=== PATIENT | male | born 1960 | race Caucasian/White ===

== ENCOUNTER 2020-07-30 09:55 | Emergency (ER) | payer BC ==
[~2020-07-30] VITALS: Ht 193 cm; Wt 149.7 kg
--- NOTE | 2020-07-30 09:55 | NUR ---
Patient to ER bed 5 to gown for evaluation. Side rails up.
[2020-07-30 09:58] VITALS: BP_SYST 136
--- NOTE | 2020-07-30 10:00 | NUR ---
Pt came to ER for fever (currently 98.4), diarrhea at home, nausea for the last few days. 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
--- NOTE | 2020-07-30 10:15 | NUR ---
ER at bedside examining patient.
[2020-07-30] MEDS ORDERED: NACL 0.9% 1,000 ML IV ONE (10:30)
[2020-07-30 10:55] LABS: BASOPHILS # (AUTO) 0.1 K/uL (0.0-0.2); BASOPHILS % (AUTO) 0.7 % (0.0-2.0); EOSINOPHILS # (AUTO) 0.1 K/uL (0.0-0.4); EOSINOPHILS % (AUTO) 0.5 % (0.0-4.0); HEMATOCRIT 49.6 % (36-54); LYMPHOCYTES # (AUTO) 0.7 K/uL (1.0-5.5); LYMPHOCYTES % (AUTO) 5.5 % (20.5-51.5); MEAN CORPUSCULAR HEMOGLOBIN 30 pg (27-31); MEAN CORPUSCULAR HGB CONC 34 % (32-36); MEAN CORPUSCULAR VOLUME 88 fL (79.0-98.0); MONOCYTES # (AUTO) 0.6 K/uL (0.0-1.0); MONOCYTES % (AUTO) 4.6 % (1.7-9.3); NEUTROPHILS # (AUTO) 11.6 K/uL (1.8-7.7); NEUTROPHILS % (AUTO) 88.7 % (40.0-70.0); PLATELET COUNT (AUTO) 155 K/uL (130-430); RED BLOOD CELL COUNT(AUTO) 5.64 MIL/uL (4.2-6.2); RED CELL DISTRIBUTION WIDTH 13.2 % (9.0-15.0); WHITE BLOOD COUNT (AUTO) 13.1 K/uL (4.8-10.8)
[2020-07-30 11:47] LABS: CALCIUM 8.5 mg/dL (8.4-11.0); CREATININE 1.1 mg/dL (0.55-1.30); POTASSIUM 4.5 mmol/L (3.5-5.1)
[2020-07-30 12:05] LABS: ALBUMIN 3.6 g/dL (3.4-4.8); TOTAL BILIRUBIN 1.3 mg/dL (0.0-1.0)
--- NOTE | 2020-07-30 12:15 | NUR ---
Pt resting in chair in room, no distress at this time, VSS
[2020-07-30 13:00] VITALS: BP_SYST 136
--- NOTE | 2020-07-30 13:00 | NUR ---
Patient given written and verbal discharge instructions and verbalizes understanding. ER MD discussed with patient the results and treatment provided. Patient in stable condition. ID arm band removed. IV catheter removed intact and dressing applied, no active bleeding. Rx of Promethazine given. Patient educated on pain management and to follow up with PMD. Pain Scale 0/10. Opportunity for questions provided and answered. Medication side effect fact sheet provided.
[2020-07-30 13:01] LABS: BILIRUBIN,URINE NEGATIVE (NEGATIVE); BLOOD, URINE 2+ (NEGATIVE); CLARITY/URINE CLEAR (CLEAR); COLOR,URINE YELLOW (YELLOW); GLUCOSE,URINE NEGATIVE (NEGATIVE); KETONES,URINE NEGATIVE (NEGATIVE); LEUKOCYTE ESTERASE ,URINE NEGATIVE (NEGATIVE); NITRITE, URINE NEGATIVE (NEGATIVE); PH,URINE 5.5 (5.0-8.0); PROTEIN URINE NEGATIVE (NEGATIVE)
[2020-07-30 13:39] LABS: WBC,URINE 0-3 /HPF (0-3)
[2020-07-30 13:40] LABS: BACTERIA,URINE None Seen /HPF (None Seen)
== END 2020-07-30 13:00 | disposition home or self-care (01) ==
LOC: MERGE 09:55 → SED 09:55
DX: R19.7 Diarrhea, unspecified (principal); R05 Cough; R03.0 Elevated blood-pressure reading, without diagnosis of hypertension
CPT/HCPCS: 36415; 71045; 74021; 80053; 81000; 83605; 84484; 85025; 87040; 93005; 96360; 99285; J7030